=== PATIENT | male | born 1945 | race Caucasian/White ===

== ENCOUNTER 2017-05-02 17:04 | Emergency (ER) | payer BC, MEDICARE ==
[~2017-05-02] VITALS: Ht 177.8 cm; Wt 95.0 kg
[2017-05-02 17:06] VITALS: BP 138/82; PULSE 67; RESP 14; TEMP 98.2; O2SAT 98
[2017-05-02 17:38] VITALS: BP 161/70; PULSE 64; RESP 16; O2SAT 98
--- NOTE | 2017-05-02 17:48 | PD ---
HPI Chief Complaint: Psychiatric Symptoms Time Seen by Provider: 17:44 Travel History International Travel<30 days: No Contact w/Intl Traveler<30days: No Traveled to known affect area: No History of Present Illness HPI 71-year-old male that presents to the ED for evaluation of psychiatric illness. Patient has a history of bipolar disorder and apparently for the past 3 weeks she's been having episodes of aggression. Apparently the episodes became more severe on Thursday and patient was Romano acted and taken to [facility]. He was admitted to the [facility] and was just released yesterday. Patient was given a new medication and he continues to be aggressive after being discharged. Daughter and of the patient are very concerned secondary to his aggressiveness and they believe that he has not had enough time to improve his symptoms. Patient was seen at [facility] today and he was told that he was out of their scope of practice of the were told to come here. Patient is not of a car but he is voluntary. He denies any homicidal or suicidal ideation to me. Patient has had a full workup on Thursday for this. Patient even had CAT scans and lab work that was essentially unremarkable. He does appear to have any infection on his left great toe. This is being treated with Keflex since been discharged from the hospital. He has no complaints at this time. He does take multiple medications. No other complaints reported at this time. PFSH Past Medical History Hx Anticoagulant Therapy: Yes (BABY ASPIRIN) Bipolar Disorder: Yes Anxiety: Yes Depression: Yes Cardiac Catheterization: Yes Cardiovascular Problems: Yes (HTN, CATH) Hypertension: Yes Respiratory: Yes (SLEEP APNEA USES CPAP) Myocardial Infarction: Yes Pneumonia: Yes Influenza Vaccination: Yes Past Surgical History Appendectomy: Yes Tonsillectomy: Yes Other Surgery: Yes (NECK SURGERY / RT SHOULDER X 2, LEFT X 1 / [facility]) Social History Alcohol Use: Yes (DAILY CONSUMPTION) Tobacco Use: No Substance Use: No Allergies-Medications (Allergen,Severity, Reaction): Coded Allergies: Percocet (Unverified Allergy, Mild, 05/02/17) STATES HE VOMITS VIOLENTLY Reported Meds & Prescriptions Reported Meds & Active Scripts Active Reported Ambien (Zolpidem Tartrate) 5 Mg Tab 5 Mg PO HS PRN Ranitidine (Ranitidine HCl) 150 Mg Tab 150 Mg PO BID Movantik (Naloxegol) 25 Mg Tab 25 Mg PO DAILY Primidone 50 Mg Tab 100 Mg PO BID Lidocaine Patch 12 HR (Lidocaine) 5 % Patch 2 Patch TOPICAL DAILY Remove patch after 12 hours Robaxin (Methocarbamol) 750 Mg Tab 750 Mg PO TID PRN [place] (Hydrocodone-Acetaminophen) 7.5-325 mg Tab 1 Tab PO Q6H PRN Lyrica (Pregabalin) 300 Mg Cap 300 Mg PO BID Mobic (Meloxicam) 7.5 Mg Tab 7.5 Mg PO BID Alprazolam 0.5 Mg Tab 0.5 Mg PO BID PRN Lamictal (Lamotrigine) 25 Mg Tab 50 Mg PO BID Fenofibrate 160 Mg Tab 160 Mg PO DAILY Fluoxetine (Fluoxetine HCl) 40 Mg Cap 40 Cap PO DAILY Zovirax (Acyclovir) 400 Mg Tab 400 Mg PO DAILY Atorvastatin (Atorvastatin Calcium) 40 Mg Tab 40 Mg PO DAILY Omeprazole 40 Mg Cap 40 Mg PO DAILY Aspirin Adult Low Strength (Aspirin) 81 Mg Tabdr 81 Mg PO DAILY Amlodipine (Amlodipine Besylate) 10 Mg Tab 10 Mg PO DAILY Metoprolol Tartrate 100 Mg Tab 50 Mg PO BID Zyprexa (Olanzapine) 15 Mg Tab 15 Mg PO HS Keflex (Cephalexin) 500 Mg Capsule 500 Mg PO Q8H Review of Systems Except as stated in HPI: all other systems reviewed are Neg Physical Exam Narrative GENERAL: SKIN: Warm and dry. HEAD: Atraumatic. Normocephalic. EYES: Pupils equal and round. No scleral icterus. No injection or drainage. ENT: No nasal bleeding or discharge. Mucous membranes pink and moist. Tongue is midline. No uvula deviation. NECK: Trachea midline. No JVD. CARDIOVASCULAR: Regular rate and rhythm. No murmurs, S3, S4. RESPIRATORY: No accessory muscle use. Clear to auscultation. Breath sounds equal bilaterally. GASTROINTESTINAL: Abdomen soft, non-tender, nondistended. Hepatic and splenic margins not palpable. MUSCULOSKELETAL: Extremities without clubbing, cyanosis, or edema. No obvious deformities. Full range of motion of the upper and lower extremities bilaterally. 2+ pulses bilaterally. Patient does have what appears to be signs of infection to the left great toe. Patient does have what appears to be a small area of erythema on the medial aspect of the left great toe. Tender to touch in this area. Able to move the toe fully. No purulence or mass noted. NEUROLOGICAL: Awake and alert. No obvious cranial nerve deficits. Motor grossly within normal limits. Five out of 5 muscle strength in the arms and legs. Normal speech. PSYCHIATRIC: Appropriate mood and affect; insight and judgment normal. Data Data Last Documented VS Vital Signs Date Time Temp Pulse Resp B/P Pulse Ox O2 Delivery O2 Flow Rate FiO2 05/02/17 17:38 64 16 161/70 98 Room Air 05/02/17 17:06 98.2 Orders Complete Blood Count With Diff (05/02/17 17:25) Comprehensive Metabolic Panel (05/02/17 17:25) Psych Screen (05/02/17 17:25) Drug Screen, Random Urine (05/02/17 17:25) Alcohol (Ethanol) (05/02/17 17:25) Lorazepam (Ativan) (05/02/17 18:30) Labs Laboratory Tests Test 05/02/17 17:55 White Blood Count 3.6 TH/MM3 Red Blood Count 3.99 MIL/MM3 Hemoglobin 13.0 GM/DL Hematocrit 37.9 % Mean Corpuscular Volume 94.9 FL Mean Corpuscular Hemoglobin 32.6 PG Mean Corpuscular Hemoglobin 34.3 % Concent Red Cell Distribution Width 13.0 % Platelet Count 212 TH/MM3 Mean Platelet Volume 7.1 FL Neutrophils (%) (Auto) 59.6 % Lymphocytes (%) (Auto) 26.8 % Monocytes (%) (Auto) 8.4 % Eosinophils (%) (Auto) 4.9 % Basophils (%) (Auto) 0.3 % Neutrophils # (Auto) 2.2 TH/MM3 Lymphocytes # (Auto) 1.0 TH/MM3 Monocytes # (Auto) 0.3 TH/MM3 Eosinophils # (Auto) 0.2 TH/MM3 Basophils # (Auto) 0.0 TH/MM3 CBC Comment DIFF FINAL Differential Comment Sodium Level 137 MEQ/L Potassium Level 4.2 MEQ/L Chloride Level 103 MEQ/L Carbon Dioxide Level 26.9 MEQ/L Anion Gap 7 MEQ/L Blood Urea Nitrogen 14 MG/DL Creatinine 0.88 MG/DL Estimat Glomerular Filtration 85 ML/MIN Rate Random Glucose 123 MG/DL Calcium Level 9.0 MG/DL Aspartate Amino Transf 28 U/L (AST/SGOT) Albumin 3.8 GM/DL MDM Medical Decision Making Medical Screen Exam Complete: Yes Emergency Medical Condition: Yes Medical Record Reviewed: Yes Interpretation(s) CBC & BMP Diagram 05/02/17 17:55 Differential Diagnosis Depression versus suicidal ideation versus anxiety versus adjustment disorder versus mood disorder versus bipolar disorder versus schizophrenia versus paranoid disorder versus psychosis versus substance abuse versus alcohol abuse versus alcohol induced psychosis versus homicidality addition versus cutting versus personality disorder versus cellulitis versus toe infection Narrative Course 71-year-old male that presents to the ED for evaluation of psychiatric illness. No sign of acute medical distress. Patient is here voluntarily with family and they're concerned because of his aggressiveness continues and his behavior still not improved. They seek treatment at this facility. Labs will be drawn. Patient will be medically clear. On regard to his infection to his toe is appears to be chronic and is irate taking antibiotics for it so I will continue these medications for now. Patient will be medically clear. Okay to be seen by psych. Mental health screening was discussed with the patient. Diagnosis Primary Impression: Bipolar 1 disorder Richi Rdz May 02, 2017 17:48
[2017-05-02 18:25] LABS: AUTOMATED NEUTROPHIL # 2.2 TH/MM3 (1.8-7.7); BASOPHIL % 0.3 % (0.0-2.0); EOSINOPHIL # 0.2 TH/MM3 (0-0.4); EOSINOPHIL % 4.9 % (0.0-4.0); HEMATOCRIT 37.9 % (39.0-51.0); HEMO FLAGS DIFF FINAL; LYMPH % 26.8 % (9.0-44.0); MEAN CELL VOLUME 94.9 FL (80.0-100.0); MEAN CORPUSCULAR HEMOGLOBIN 32.6 PG (27.0-34.0); MEAN CORPUSCULAR HGB CONC 34.3 % (32.0-36.0); MONO % 8.4 % (0.0-8.0); NEUT % 59.6 % (16.0-70.0); PLATELET COUNT 212 TH/MM3 (150-450); RED BLOOD COUNT 3.99 MIL/MM3 (4.50-5.90); WHITE BLOOD COUNT 3.6 TH/MM3 (4.0-11.0)
[2017-05-02] MEDS ORDERED: LORazepam 1 MG TAB PO ONE (18:30)
[2017-05-02] MEDS ORDERED: LAMO25 PO (18:33)
[2017-05-02] MEDS ORDERED: CEPH-460 PO (18:33)
[2017-05-02] MEDS ORDERED: AMLO10TA2 PO (18:33)
[2017-05-02] MEDS ORDERED: FLUO40CA PO (18:33)
[2017-05-02] MEDS ORDERED: OMEP40CA2 PO (18:33)
[2017-05-02] MEDS ORDERED: METO100T PO (18:33)
[2017-05-02] MEDS ORDERED: LIDO1PAD52 TOPICAL (18:33)
[2017-05-02] MEDS ORDERED: PRIM50TA5 PO (18:33)
[2017-05-02] MEDS ORDERED: ZYPR15TA PO (18:33)
[2017-05-02] MEDS ORDERED: HYDR-3288 PO (18:33)
[2017-05-02] MEDS ORDERED: ROBA750T PO (18:33)
[2017-05-02] MEDS ORDERED: RANI150T PO (18:33)
[2017-05-02] MEDS ORDERED: ALPR0.5T3 PO (18:33)
[2017-05-02] MEDS ORDERED: ATOR40TA16 PO (18:33)
[2017-05-02] MEDS ORDERED: NALO1TAB2 PO (18:33)
[2017-05-02] MEDS ORDERED: ZOVI400T PO (18:33)
[2017-05-02] MEDS ORDERED: ASPI1TAB91 PO (18:33)
[2017-05-02] MEDS ORDERED: AMBI5TAB PO (18:33)
[2017-05-02] MEDS ORDERED: PREG300 PO (18:33)
[2017-05-02] MEDS ORDERED: FENO160T PO (18:33)
[2017-05-02] MEDS ORDERED: MOBI7.5T PO (18:33)
[2017-05-02 18:45] LABS: AMPHETAMINE, URINE NEG (NEG); BARBITURATES, URINE POS (NEG); COCAINE, URINE NEG (NEG)
[2017-05-02 18:46] LABS: ANION GAP 7 MEQ/L (5-15); AST (GOT) 28 U/L (15-37); BICARBONATE 26.9 MEQ/L (21.0-32.0); BLOOD UREA NITROGEN 14 MG/DL (7-18); CHLORIDE 103 MEQ/L (98-107); GLOMERULAR FILTRATION RATE 85 ML/MIN (>89); POTASSIUM 4.2 MEQ/L (3.5-5.1); SODIUM (NA) 137 MEQ/L (136-145)
[2017-05-02 18:51] LABS: ALKALINE PHOSPHATASE 44 U/L (45-117); ALT (GPT) 49 U/L (12-78); TOTAL BILIRUBIN ADULT 0.5 MG/DL (0.2-1.0)
[2017-05-02 19:20] VITALS: BP 142/66; PULSE 67; RESP 16; O2SAT 98
[2017-05-02] MEDS ORDERED: ACETAMINOPHEN/HYDROcodone 325 MG/10 MG TAB PO ONE (20:30)
[2017-05-03] MEDS ORDERED: LORazepam 1 MG TAB PO ONE (02:45)
[2017-05-03] MEDS ORDERED: ACETAMINOPHEN/HYDROcodone 325 MG/10 MG TAB PO ONE (02:45)
[2017-05-03 06:50] VITALS: BP 170/68; PULSE 67; RESP 18; O2SAT 98
[2017-05-03] MEDS ORDERED: lamoTRIgine 25 MG TAB PO ONE (09:45)
[2017-05-03] MEDS ORDERED: METOPROLOL TARTRATE 50 MG TAB PO ONE (09:45)
[2017-05-03] MEDS ORDERED: PRIMIDONE 50 MG TAB PO ONE (09:45)
[2017-05-03 10:51] VITALS: BP 193/92; PULSE 63; RESP 17; O2SAT 97
== END 2017-05-03 13:46 ==
LOC: NEPC 17:04
DX: F31.89 Other bipolar disorder (principal); F41.9 Anxiety disorder, unspecified; I10 Essential (primary) hypertension; I25.2 Old myocardial infarction; Z88.5 Allergy status to narcotic agent; Z79.899 Other long term (current) drug therapy; Z79.82 Long term (current) use of aspirin
CPT/HCPCS: 80053; 80307; 85025; 99285